=== PATIENT | female | born 1990 | race African-American/Black ===

== ENCOUNTER 2021-06-26 12:11 | Emergency (ER) | payer OTHER ==
[2021-06-26 12:40] VITALS: BP 121/74; PULSE 98; TEMP 99.6; BMI 41.3
[2021-06-26] MEDS ORDERED: ACETAMINOPHEN 325 MG TABLET (FP) PO ONE (13:22)
[2021-06-26] MEDS ORDERED: ACETAMINOPHEN 500 MG TABLET (FP) ONE (13:33)
== END 2021-06-26 13:42 | disposition home or self-care (01) ==
LOC: FER 12:11
DX: U07.1 COVID-19 (principal); B97.4 Respiratory syncytial virus as the cause of diseases classified elsewhere; R05.1 Acute cough
CPT/HCPCS: 71045-TC-FY; 87804; 87807; 99284-25; C9803; U0003; U0005